=== PATIENT | male | born 1960 | race Caucasian/White ===

== ENCOUNTER → 2016-08-16 | Day surgery (SDC) | payer OTHER ==
[~2016-08-16] VITALS: Ht 175.3 cm; Wt 71.7 kg
[~2016-08-16] MED LIST: ALPR0.5T3 PO; ASPI325T PO; ATOR20TA15 PO; ATROPINE SULFATE 1% OPHT SOLN 2 ML BTL ONE; BALANCED SALT SOLN OPHT IRRIG 15 ML BTL ONE; CHLORHEXIDINE GLUCONATE 2 % 1 PACK (2 CLOTHS) TOPICAL PRN; CLON0.1T PO; DEXAMETHASONE SOD PHOS 4 MG/ML VIAL ONE; EPINEPHrine HCL (1:1000) 1 MG/ML VIAL ONE; FAMOTIDINE 20 MG/2 ML VIAL ONE; FENO54TA PO; HYDR-3366 PO; INSULIN HUMAN REGULAR 1,000 UNITS/10 ML VIAL SQ PRN; LACTATED RINGER'S 1000 ML INJ 1,000 ML IV ONE; LACTATED RINGER'S 1000 ML IV PRN; LISI40TA PO; METO200T3 PO; METOPROLOL TARTRATE 25 MG TAB PO PRN; MIDAZOLAM HCL 2 MG/2 ML VIAL ONE; ONDANSETRON HCL 4 MG/2 ML VIAL IV PUSH ONE; POVIDONE IODINE 5% (ANTISEPSIS KIT) 4 APPLICATIONS EACH NARE PRN; PROPOFOL 200 MG/20 ML AMP IV ONE; SODIUM CHLORID 0.9% 500 ML IV PRN; STERILE WATER FOR INJ 20 ML VIAL ONE; TOBRAMYCIN/DEXAMETHASONE OPTH OINT 3.5 GM TUBE ONE; TRIAMCINOLONE ACETONIDE/PF 40 MG/ML OPTH VIAL ONE; TROPICAMIDE 1% OPHT SOLN 15 ML BTL ONE; ceFAZolin INJ 1,000 MG VIAL ONE; ePHEDrine/NS 25 MG/5 ML SYR IV ONE; fentaNYL CITRATE 250 MCG/5 ML AMP ONE; oxyCODONE/ACETAMINOPHEN 5 MG/325 MG TAB ONE
[2016-08-16 09:50] VITALS: BP 117/83; PULSE 63; RESP 18; TEMP 98.7; O2SAT 94
[2016-08-16 10:52] LABS: AUTOMATED NEUTROPHIL # 3.3 TH/MM3 (1.8-7.7); BASOPHIL % 0.6 % (0.0-2.0); EOSINOPHIL # 0.3 TH/MM3 (0-0.4); EOSINOPHIL % 4.9 % (0.0-4.0); HEMATOCRIT 34.9 % (39.0-51.0); HEMO FLAGS DIFF FINAL; LYMPH % 30.9 % (9.0-44.0); MEAN CELL VOLUME 100.5 FL (80.0-100.0); MEAN CORPUSCULAR HEMOGLOBIN 33.5 PG (27.0-34.0); MEAN CORPUSCULAR HGB CONC 33.3 % (32.0-36.0); NEUT % 51.6 % (16.0-70.0); PLATELET COUNT 168 TH/MM3 (150-450); RED BLOOD COUNT 3.48 MIL/MM3 (4.50-5.90); RED CELL DISTRIBUTION WIDTH 12.5 % (11.6-17.2); WHITE BLOOD COUNT 6.4 TH/MM3 (4.0-11.0)
[2016-08-16] MEDS: ATROPINE SULFATE 1% OPHT SOLN 5 ML BTL RIGHT EYE SCH ×3 (11:23→11:55)
[2016-08-16] MEDS: TROPICAMIDE 1% OPTH SOLN 2 ML BTL RIGHT EYE SCH ×3 (11:23→11:55)
[2016-08-16] MEDS: CYCLOPENTOLATE HCL 1% OPHT SOLN 2 ML BTL RIGHT EYE SCH ×3 (11:23→11:55)
[2016-08-16] MEDS: PHENYLEPHRINE HCL 2.5% OPTH SOLN 2 ML BTL RIGHT EYE SCH ×3 (11:23→11:55)
[2016-08-16 14:38] VITALS: BP 128/72; PULSE 65; RESP 16; TEMP 98; O2SAT 94
--- NOTE | 2016-08-18 23:31 | MP ---
cc: EMILY ANDREA MD DATE OF SURGERY 08/16/16 PREOPERATIVE DIAGNOSIS Rhegmatogenous retinal detachment POSTOPERATIVE DIAGNOSIS Rhegmatogenous retinal detachment PROCEDURE Trans pars plana vitrectomy with endolaser photocoagulation, gas fluid exchange, left eye. SURGEON Dr. Tiffanie Andrea ANESTHESIA General laryngeal mask anesthesia. HISTORY Mr. 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 On 07/09/16, he underwent a pneumatic retinopexy followed by laser photocoagulation to the superotemporal detachment. He did well until presenting this past Saturday which was 08/13 with recurrent fluid adjacent to the laser spots between 10 and 12 o'clock. At this point, I suggested a vitrectomy be carried out and he wished to proceed. The risks and benefits of surgery were discussed with the patient and informed consent was obtained. No guarantee was made as to visual outcome. He was brought to [facility] operating room one and placed on the operating table. Appropriate anesthesia monitoring devices were applied and he was placed under general anesthesia using a laryngeal mask. The right eye was identified as the operative site and then prepped and draped in the usual sterile fashion. A lid speculum was placed. At this point, an appropriate time-out was called with the surgical team agreeing to the planned procedure and surgical site. Using the Andres 23-gauge vitrectomy system, the trocar cannulas were placed. The first one was placed at approximately 9 o'clock and verified to be in the posterior chamber. An infusion cannula was affixed to it and it was turned on. Two additional trocar cannulas were added at 10 and 2 o'clock in similar fashion. Using the BIOME wide angle viewing system, the eye was entered with the endoilluminator light pipe and vitrectomy cutter and a complete vitrectomy was performed. The peripheral vitreous was trimmed and with the aid of scleral depression, the fluid stretched into the mid periphery but was not involving the macula from approximately 10 to 12:30 o'clock. Once the vitrectomy had been completed, Perfluoron liquid was used to flatten the retina and then endolaser photocoagulation with a power of 300 milliwatts and 0.1-second exposure as well as laser indirect delivery with a power of 400 and an exposure of 0.150 was used to treat the entire peripheral retina. A total of 2058 laser spots were placed. The Perfluoron was then exchanged out for air and the air exchanged out for a 24% mixture of SF6 gas. The trocar cannulas were then removed one by one with tamponade of the site with a cotton swab leaving the eye with good pressure and no visible air leaks. Atropine drops were placed on the cornea followed by subconjunctival action of Ancef 125 mg in 0.5 ml and Decadron 2 mg in 0.5 ml. The lid speculum was removed and the patient was undraped. TobraDex ointment was placed on the cornea and then the right eye was patched and shielded. The patient had the laryngeal mass removed in the room and was returned to recovery in good condition laying on his left side. MD DOROTHY Razo/ /2:45 PM /11:21 PM
--- NOTE | 2016-08-20 08:15 | EKG ---
Date Performed: 08/16/2016 Time Performed: 10:09:14 PTAGE: 55 years EKG: Sinus rhythm BORDERLINE LEFT AXIS DEVIATION BORDERLINE ECG NO PREVIOUS TRACING DOCTOR: Mendel Gonzalez Interpretating Date/Time 08/20/2016 08:14:00
== END | disposition home or self-care (01) ==
LOC: HSDC 09:10
PROVIDERS: ATTEND Ophthalmology
DX: H33.001 Unspecified retinal detachment with retinal break, right eye (principal); I10 Essential (primary) hypertension; K21.9 Gastro-esophageal reflux disease without esophagitis
CPT/HCPCS: 00145; 67040; 85025; 93005; J0171; J0690; J1100; J2250; J2405; J3010; J7120; J3300